=== PATIENT | female | born 1980 | race Caucasian/White ===

== ENCOUNTER 2017-10-26 18:51 | Emergency (ER) | payer OTHER ==
[2017-10-26 19:08] LABS: Bilirubin Negative (Negative); Blood, Urine Negative (Negative); Clarity Clear (Clear); Glucose, Urine (Dipstick) Negative (Negative); Leukocyte Negative (Negative); Nitrite Negative (Negative); Protein, Urine (Dipstick) Negative (Neg-Trace); Urobilinogen 0.2 mg/dL (0.2-1.0)
[2017-10-26 19:09] LABS: Pregnancy Test - Urine (BHCG) Negative (Negative); Pregu Control Background? CLEAR/WHITE (CLR/WHITE); Pregu Control Bar Appear? YES (CONTROL BAR)
[2017-10-26 19:22] LABS: #Eosinphils 0.3 thou/uL (0.0-0.7); #Lymphocytes 2.8 thou/uL (1.20-3.40); #Monocytes 0.3 thou/uL (0.11-0.59); #Neutrophils 2.5 thou/uL (1.40-6.50); %Basophils 0.7 % (0.0-1.0); %Eosinophils 4.6 % (0.0-10.0); %Lymphocytes 46.7 % (21.0-51.0); %Monocytes 5.7 % (0.0-10.0); %Neutrophils 42.3 % (42.0-75.0); Hemoglobin 12.4 g/dL (12.0-16.0); Mean Corpuscular HGB CONC 32.6 g/dL (32.0-36.0); Mean Platelet Volume 6.8 fL (7.4-10.4); Platelet Count 238 thou/uL (130-400); RBC Distribution Width 11.6 % (11.5-14.5); Red Blood Cell (RBC) Count 4.13 mill/uL (4.20-5.40)
[2017-10-26] MEDS ORDERED: Ketorolac Tromethamine 30 MG/ML VIAL ONE (19:23)
[2017-10-26 19:38] LABS: ALT (SGPT) 16 U/L (8-55); AST (SGOT) 15 U/L (5-34); Albumin 3.9 g/dL (3.5-5.0); Alkaline Phosphatase 68 U/L (40-150); Anion Gap 14 mmol/L (10-20); BUN (Urea Nitrogen) 11 mg/dL (7.0-18.7); Bilirubin, Total 0.3 mg/dL (0.2-1.2); Calc. Creatinine Clearance 0 mL/min (70-130); Carbon Dioxide 25 mmol/L (22-29); Chloride 106 mmol/L (98-107); Estimated GFR-MDRD Greater than 90; Globulin 2.9 g/dL (2.4-3.5); Glucose 95 mg/dL (70-105); Lipase 18 U/L (8-78); Potassium 3.6 mmol/L (3.5-5.1); Protein, Total 6.8 g/dL (6.0-8.3); Sodium 141 mmol/L (136-145)
--- NOTE | 2017-10-26 21:30 | CT ---
CT ABDOMEN AND PELVIS WITHOUT CONTRAST: Date: 10-26-[address] was done for evaluation of persistent right flank pain. Axial slices were acquired a nd then coronal reconstructions were done. FINDINGS: The lung bases are clear. There is some pleural thickening in the right costodiaphragmatic angle whic h is more likely longstanding than acute. The adjacent ribs appeared intact. The liver is slightly generous in size but otherwise appears normal. The spleen, pancreas, gallbladde r, adrenal glands and abdominal aorta all appear normal within the limitations of a noncontrast study . There is a large nonobstructing calculus in the superior pole of the right kidney. There is no eviden ce of ureteral calculi or ureteral dilatation. CT of the pelvis shows no pelvic masses, fluid collections, or inflammatory changes. The appendix nixon ears normal. Incidentally noted were bulges of the L4-5 and L5-S1 discs. At L5-S1 the disc is somewhat calcified c entrally. IMPRESSION: 1. Nonobstructing right renal calculus. 2. Small amounts of pleural thickening posteriorly in the right lower hemithorax, significance unknow n. POS: HOME
== END 2017-10-26 20:11 | disposition home or self-care (01) ==
LOC: BURERS 18:51
DX: M54.5 Low back pain (principal); I10 Essential (primary) hypertension; F41.9 Anxiety disorder, unspecified; F32.9 Major depressive disorder, single episode, unspecified; F17.210 Nicotine dependence, cigarettes, uncomplicated; Z79.899 Other long term (current) drug therapy
CPT/HCPCS: 74176; 80053; 81003; 81025; 83690; 85025; 96374; J1885

== ENCOUNTER 2020-09-25 19:07 | Emergency (ER) | payer OTHER, SELFPAY ==
[2020-09-25 19:31] LABS: Bilirubin Negative (Negative); Blood, Urine Negative (Negative); Clarity Clear (Clear); Glucose, Urine (Dipstick) Negative (Negative); Ketone, Urine Trace mg/dL (Negative); Leukocyte Negative (Negative); Nitrite Negative (Negative); Protein, Urine (Dipstick) Negative (Neg-Trace); Urobilinogen 0.2 mg/dL (Less than 2); pH, Urine 5.5 (5.0-9.0)
[2020-09-25 19:32] LABS: Specific Gravity, Urine 1.026 (1.002-1.036)
[2020-09-25 19:45] LABS: Amphetamine Not Detected (NotDetected); Barbiturates Screen Not Detected (NotDetected); Benzodiazepine Screen Detected (NotDetected); Cocaine Metabolite Screen Not Detected (NotDetected); Medtox Control Line Valid? VALID (VALID); Methadone Not Detected (NotDetected); Methamphetamine Not Detected (NotDetected); Opiate Screen Not Detected (NotDetected); Oxycodone Screen Not Detected (NotDetected); Phencyclidine (PCP) Not Detected (NotDetected); THC/Cannabinoid Screen Detected (NotDetected); Tricyclic Screen Not Detected (NotDetected)
[2020-09-25 19:54] LABS: #Basophils 0.1 thou/uL (0.0-0.2); #Eosinphils 0.2 thou/uL (0.0-0.7); #Lymphocytes 2.9 thou/uL (1.20-3.40); #Monocytes 0.2 thou/uL (0.11-0.59); #Neutrophils 3.8 thou/uL (1.40-6.50); %Basophils 1.4 % (0.0-1.0); %Eosinophils 2.4 % (0.0-10.0); %Lymphocytes 40.4 % (21.0-51.0); %Neutrophils 52.8 % (42.0-75.0); Hemoglobin 14.1 g/dL (12.0-16.0); Mean Corpuscular HGB CONC 32.5 g/dL (32.0-36.0); Mean Corpuscular Hemoglobin 30.7 pg (27.0-31.0); Mean Corpuscular Volume 94.4 fL (78.0-98.0); Mean Platelet Volume 8.5 fL (7.4-10.4); Platelet Count 275 thou/uL (130-400); RBC Distribution Width 12.1 % (11.5-14.5); Red Blood Cell (RBC) Count 4.58 mill/uL (4.20-5.40); White Blood Cell (WBC) Count 7.1 thou/uL (4.8-10.8)
[2020-09-25 19:58] LABS: ALT (SGPT) 19 U/L (8-55); AST (SGOT) 18 U/L (5-34); Albumin 4.2 g/dL (3.5-5.0); Alkaline Phosphatase 68 U/L (40-110); Anion Gap 14 mmol/L (10-20); BUN (Urea Nitrogen) 11 mg/dL (7.0-18.7); Bilirubin, Total Less than 0.2 mg/dL (0.2-1.2); Calc. Creatinine Clearance 0 mL/min (70-130); Calcium 8.7 mg/dL (7.8-10.44); Carbon Dioxide 23 mmol/L (22-29); Chloride 108 mmol/L (98-107); Globulin 3.1 g/dL (2.4-3.5); Glucose 99 mg/dL (70-105); Lipase 18 U/L (8-78); Potassium 3.6 mmol/L (3.5-5.1); Protein, Total 7.3 g/dL (6.0-8.3); Sodium 141 mmol/L (136-145)
[2020-09-25] MEDS ORDERED: Ketorolac Tromethamine 30 MG/ML VIAL ONE (19:59)
--- NOTE | 2020-09-26 07:03 | CT ---
CT ABDOMEN AND PELVIS WITHOUT CONTRAST: Date: 09/25/2020 Comparison made with the 10/26/2017 CT. The patient presents with left lower abdominal pain. There is a history of renal stones previously. The lung bases are clear, except for some scarring and pleural thickening in the right base. This was largely present before. The liver, spleen, pancreas, adrenal glands, and abdominal aorta showed no acute findings within the limitations of a noncontrast study. The stone previously seen in the right kidney is no longer visible today, but there is no hydronephro sis. The left kidney has a few nonobstructing calculi in its upper pole, but there is no hydronephros is or sign of ureteral calculi. An indentation of the cortex of the upper pole could be scarring from prior infection, however, this also is not new. CT of the pelvis showed no pelvic masses, fluid collections, or inflammatory changes. The bowel was u nremarkable in appearance. The appendix appears normal. There is no free air or free fluid. An incide ntal finding was a left paracentral disc protrusion at L5-S1 with partial calcification. It is virtua lly identical in appearance to what was seen on the 2018 study. IMPRESSION: No acute abdominal or pelvic findings to explain the patient's symptoms. POS: HOME
--- NOTE | 2020-09-26 07:05 | RAD ---
CHEST 2 VIEWS: Date: 09/25/2020 The heart is normal in size and the lungs are clear. No acute infiltrate or effusion seen. No vascula r congestion, edema, or other acute pulmonary finding. There are probably a few calcified granulomas in the lungs. The mediastinum is unremarkable. IMPRESSION: No acute thoracic finding. POS: HOME
[2020-09-26 17:06] LABS: SARS-CoV-2 MS2 Positive; SARS-CoV-2 N Gene Negative; SARS-CoV-2 S Gene Negative; SARS-CoV-2 by NAA Not Detected (NotDetected); SARS-CoV-2 orf1ab Negative
== END 2020-09-25 20:20 | disposition home or self-care (01) ==
LOC: BURERS 19:07
DX: A08.4 Viral intestinal infection, unspecified (principal); Z20.822 Contact with and (suspected) exposure to COVID-19; I10 Essential (primary) hypertension; F17.210 Nicotine dependence, cigarettes, uncomplicated; G35 Multiple sclerosis
CPT/HCPCS: 71046; 74176; 80053; 80306; 81003; 83605; 83690; 84484; 85025; 85379; 87635; 93005; 96374; J1885; U0003